=== PATIENT | female | born 1945 | race Caucasian/White ===

== ENCOUNTER 2017-02-18 21:40 | Inpatient (IN) | payer MEDICARE, OTHER ==
[~2017-02-18] VITALS: Ht 160 cm; Wt 62.6 kg
[~2017-02-18 21:40] MED LIST: FLUO20CA36 PO; RISP2TAB23 PO
--- NOTE | 2017-02-18 21:52 | NUR ---
CALLED NURSING SUP. FOR TELE BED
[2017-02-18] MEDS ORDERED: HYDROMORPHONE INJ 2 MG/ML DISP.SYRIN IV ONE (22:30)
[2017-02-18] MEDS ORDERED: ONDANSETRON HCL/PF 4 MG/2 ML VIAL IVP ONE (22:30)
[2017-02-18] MEDS ORDERED: HYDROMORPHONE 1 MG/1 ML DISP.SYRIN ONE (22:34)
[2017-02-18] MEDS ORDERED: ONDANSETRON HCL/PF 4 MG/2 ML VIAL ONE (22:34)
--- NOTE | 2017-02-18 22:36 | NUR ---
US IN PROGRESS AT THE BEDSIDE.
[2017-02-18 22:46] LABS: BASOPHILS % (AUTO) 0.3 % (0.0-2.0); EOSINOPHILS % (AUTO) 0.2 % (0.0-6.0); HEMATOCRIT 41 % (33-45); HEMOGLOBIN 13.4 g/dL (11.5-14.8); LYMPHOCYTES # (AUTO) 0.8 /CMM (0.8-4.8); LYMPHOCYTES % (AUTO) 7.3 % (20.0-44.0); MEAN CORPUSCULAR HEMOGLOBIN 30 PG (26.0-33.0); MEAN CORPUSCULAR HGB CONC 33 g/dl (31.0-36.0); MEAN CORPUSCULAR VOLUME 91 fL (82-100); MONOCYTES # (AUTO) 0.4 /CMM (0.1-1.30); MONOCYTES % (AUTO) 3.3 % (2.0-12.0); NEUTROPHILS # (AUTO) 10.4 /CMM (1.8-8.9); NEUTROPHILS % (AUTO) 88.9 % (43.0-81.0); PLATELET COUNT (AUTO) 213 /CMM (150-450); RDW COEFFICIENT OF VARIATION 13.1 (11.5-15.0); RED BLOOD CELL COUNT(AUTO) 4.43 MIL/uL (4.0-5.2); WHITE BLOOD COUNT (AUTO) 11.7 K/uL (4.3-11.0)
--- NOTE | 2017-02-18 22:52 | NUR ---
EKG IN PROGRESS AT THE BEDSIDE.
--- NOTE | 2017-02-18 22:53 | NUR ---
PANMAN AT THE BEDSIDE.
[2017-02-18 22:57] LABS: CALCIUM, SERUM 9.6 mg/dL (8.5-10.1); CREATININE 1.4 mg/dL (0.6-1.3)
[2017-02-18 23:01] LABS: INR 0.94 (0.87-1.13)
[2017-02-18 23:03] LABS: ALBUMIN 3.8 g/dL (3.4-5.0); BILIRUBIN,DIRECT 0.1 mg/dL (0.0-0.2); BILIRUBIN,TOTAL 0.4 mg/dL (0.2-1.0); TOTAL PROTEIN, SERUM 7.7 g/dL (6.4-8.2)
[2017-02-18 23:05] LABS: TROPONIN I 0.098 ng/mL (0.00-0.056)
[2017-02-18] MEDS ORDERED: IOHEXOL-350 100 ML VIAL IV ONE (23:41)
[2017-02-18] MEDS ORDERED: IV NS 0.9% 250 ML IV ONE (23:41)
--- NOTE | 2017-02-19 00:03 | NUR ---
PT LEFT FOR CT VIA GURNEY.
[2017-02-19] MEDS ORDERED: ASPIRIN 325 MG TABLET ONE (01:09)
[2017-02-19] MEDS ORDERED: NITROGLYCERIN PACKET 1 GM PACKET ONE (01:09)
[2017-02-19] MEDS ORDERED: NITROGLYCERIN PACKET 1 GM PACKET TD ONE (01:30)
[2017-02-19] MEDS ORDERED: ASPIRIN 81 MG TAB.CHEW PO ONE (01:30)
--- NOTE | 2017-02-19 01:53 | NUR ---
DR. CARRION IS SPEAKING TO DR. HARO.
[2017-02-19] MEDS ORDERED: NITROGLYCERIN 0.4 MG/TAB BOTTLE SL PRN (02:00)
[2017-02-19] MEDS ORDERED: MORPHINE SULFATE INJ 2 MG/ML DISP.SYRIN IV PRN (02:00)
[2017-02-19] MEDS ORDERED: ZOLPIDEM TARTRATE 5 MG TABLET PO PRN (02:00)
[2017-02-19] MEDS ORDERED: CARVEDILOL 6.25 MG TABLET PO SCH ×3 (02:00→21:00)
[2017-02-19] MEDS ORDERED: ONDANSETRON HCL/PF 4 MG/2 ML VIAL IVP PRN (02:00)
[2017-02-19] MEDS: ASPIRIN 81 MG TAB.CHEW PO SCH ×2 (03:15→08:01)
--- NOTE | 2017-02-19 03:15 | NUR ---
ophthalmic technician Note Received pt. from ER from [facility]. 71F A&O x4. Pt. ambulated from stretcher to bed 111-2. Admitting Dx NSTEMI. Denies chest pain at this time. VSS. Admission routine care rendered. Oriented to room and nurse call light within reach. Orders noted and carried out. Pt. on RA with no SOB. Tele SR on the monitor. Skin intact. Pt. is ambulatory. Keep pt. comfortable. Will continue to monitor.
--- NOTE | 2017-02-19 03:21 | NUR ---
PT TRANSPORTED TO TELE VIA GURNEY.
[2017-02-19 04:01] VITALS: BP 119/64
--- NOTE | 2017-02-19 04:24 | NUR ---
ASA not given at this time. Pt. received ASA in the ER.
[2017-02-19] MEDS ORDERED: CARVEDILOL 6.25 MG TABLET ONE (04:26)
--- NOTE | 2017-02-19 06:02 | NUR ---
Troponin- 0.407. Juanita MONTEJO charge nurse aware. No MD contact required. Pt. denies chest pain at this time. VSS. Pt. instructed to call for any s/s of chest pain.
--- NOTE | 2017-02-19 06:05 | NUR ---
goods layer not Closing pt. in bed resting comfortably. VSS. Denies abdominal or chest pain. No distress or SOB. SR on the tele monitor. All needs attended to. Will keep comfortable and continue to monitor.
--- NOTE | 2017-02-19 07:30 | NUR ---
RN NOTES: PT RECEIVED IN STABLE CONDITION ALERT AWAKE OX3. ABLE TO MAKE NEEDS KNOWN. RESPONSIVE TO VERBAL & TACTILE STIMULI. ALL NEEDS KNOWN. ON ROOM AIR. ON TELE MONITOR, SINUS RHYTHM. AMBULATORY. IV LINE INTACT, SALINE LOCK. SAFETY MEASURES OBSERVED. CALL LIGHT WITHIN REACH. WILL CONTINUE TO MONITOR.
[2017-02-19] MEDS ORDERED: VALS80TA2 PO ×2 (07:48→08:14)
[2017-02-19] MEDS ORDERED: MIRT15TA7 PO (07:48)
[2017-02-19 08:00] VITALS: BP 94/50
--- NOTE | 2017-02-19 08:00 | NUR ---
RN NOTES: PT SEEN BY DR. 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
[2017-02-19 09:16] LABS: MAGNESIUM 1.8 mg/dL (1.8-2.4); PHOSPHORUS 3.8 mg/dL (2.5-4.9); THYROID STIMULATING HORMONE 1.549 uIU/mL (0.358-3.74)
[2017-02-19] MEDS ORDERED: IV SET PRIMARY PUMP SET 1 EA INFUS.SET MC ONE (09:25)
[2017-02-19] MEDS: ENOXAPARIN SODIUM 60 MG/0.6 ML DISP.SYRIN SQ SCH (09:32)
[2017-02-19] MEDS: IV NS 0.9% 1,000 ML IV PRN ×2 (09:32→22:42)
[2017-02-19 12:00] VITALS: BP 95/55
[2017-02-19 16:00] VITALS: BP 120/60
[2017-02-19 20:00] VITALS: BP 141/81
--- NOTE | 2017-02-19 20:00 | NUR ---
RN NOTE GOT A CALL FROM DR SEGUNDO, NEW ORDER CARRIED OUT - COREG DOSE INCREASED TO 12.5
--- NOTE | 2017-02-19 20:30 | NUR ---
RN NOTE GOT A CALL FROM VENEER PULLERGINO FERRARI, ABEL WITH UNDERGO CT ANGIOGRAM OF THE HEART TOMORROW 02/20/2017 BETWEEN 9-12NN. CONSENT TO BE SIGNED, PT NPO POST MN.
[2017-02-19] MEDS ORDERED: CARVEDILOL 12.5 MG TABLET ONE (20:43)
[2017-02-19] MEDS: CARVEDILOL 12.5 MG TABLET PO SCH (21:00)
--- NOTE | 2017-02-19 21:30 | NUR ---
RN NOTE COREG 12.5 MG WAS SCANNED AND GIVEN AT 2100. HOWEVER ON THE EMAR THERE WAS A DUPLICATE ORDER, THIS WAS CORRECTED NON-ADMIN.
--- NOTE | 2017-02-19 23:06 | NUR ---
PT SIGNED THE CONSENT FOR CT ANGIO WITH CONTRAST. PT GIVEN VERBAL AND PRINTED INFORMATION REGARDING THE DIAGNOSTIC TEST AND VERBALIZED UNDERSTANDING.
[2017-02-20] VITALS (9 sets, daily range): BP systolic 106–154; BP diastolic 44–77
--- NOTE | 2017-02-20 06:31 | NUR ---
INSERTED NEW IV PERIPHERAL SITE G18 ON RFA REQUIRED FOR CT ANGIO. TOLERATED WELL
--- NOTE | 2017-02-20 06:32 | NUR ---
RN CLOSING NOTE PT IN STABLE CONDITION, CALM AND COOPERATIVE. ASKED IF SHE HAS FURTHER QUESTIONS REGARDING DIAGNOSTIC PROCEDURE TODAY, PT VERBALIZED SHE IS SATISFIED WITH THE INFORMATION PROVIDED AND IS READY TO FACE THE DAY. WILL ENDORSE TO AM NURSE FOR CONTINUITY OF CARE
[2017-02-20 07:36] LABS: BASOPHILS % (AUTO) 0.5 % (0.0-2.0); EOSINOPHILS # (AUTO) 0.1 /CMM (0.0-0.7); EOSINOPHILS % (AUTO) 2.1 % (0.0-6.0); HEMATOCRIT 33 % (33-45); HEMOGLOBIN 11.2 g/dL (11.5-14.8); LYMPHOCYTES # (AUTO) 0.9 /CMM (0.8-4.8); LYMPHOCYTES % (AUTO) 17.5 % (20.0-44.0); MEAN CORPUSCULAR HEMOGLOBIN 31 PG (26.0-33.0); MEAN CORPUSCULAR HGB CONC 34 g/dl (31.0-36.0); MEAN CORPUSCULAR VOLUME 92 fL (82-100); MONOCYTES # (AUTO) 0.4 /CMM (0.1-1.30); MONOCYTES % (AUTO) 7.2 % (2.0-12.0); NEUTROPHILS # (AUTO) 3.7 /CMM (1.8-8.9); NEUTROPHILS % (AUTO) 72.7 % (43.0-81.0); PLATELET COUNT (AUTO) 175 /CMM (150-450); RDW COEFFICIENT OF VARIATION 13.4 (11.5-15.0); WHITE BLOOD COUNT (AUTO) 5.1 K/uL (4.3-11.0)
[2017-02-20 07:56] LABS: ALBUMIN 3.1 g/dL (3.4-5.0); BILIRUBIN,TOTAL 0.3 mg/dL (0.2-1.0); CALCIUM, SERUM 8.5 mg/dL (8.5-10.1); MAGNESIUM 1.9 mg/dL (1.8-2.4); PHOSPHORUS 3.4 mg/dL (2.5-4.9); POTASSIUM 4.3 mmol/L (3.5-5.1); TOTAL PROTEIN, SERUM 6.3 g/dL (6.4-8.2)
[2017-02-20 08:04] LABS: TROPONIN I 0.074 ng/mL (0.00-0.056)
[2017-02-20] MEDS ORDERED: IV NS 0.9% 250 ML IV ONE (08:20)
[2017-02-20] MEDS ORDERED: CT SWABBABLE VALVE TRANS SET 1 EA INFUS.SET MC ONE (08:21)
[2017-02-20] MEDS ORDERED: IOHEXOL-350 100 ML VIAL IV ONE (08:21)
[2017-02-20] MEDS ORDERED: NITROGLYCERIN 0.4 MG/TAB BOTTLE ONE (09:26)
[2017-02-20] MEDS: ENOXAPARIN SODIUM 60 MG/0.6 ML DISP.SYRIN SQ SCH (10:15)
[2017-02-20] MEDS: ASPIRIN 81 MG TAB.CHEW PO SCH (10:15)
--- NOTE | 2017-02-20 10:15 | NUR ---
PRINT LINE SUPERVISOR/ CT Angiography 0850 Patient seen, vitals stable HR 59 BP 139/68. no apparent distress, denies chest pain or SOB. EKG done NSR with AICD on the left side. Pre- procedure checklist done and placed on chart. IV on the right AC patent with back flow. 0900 Patient education reinforced regarding contrast administration and procedure. consent on chart and patient in agreement. questions answered. [address] room, vitals remain stable, recorded. no betablocker given, HR <60. 0931 Nitro 0.4mg sublingual given prior scan. no distress, vitals remain stable. 0940 CTA done, no distress or discomfort reported. vitals remain stable and will continue to monitor. 0942 Transported back to room, vitals signs monitored and recorded. No complaints of any distress, no chest pain. alert and oriented on room air.
[2017-02-20] MEDS: CARVEDILOL 12.5 MG TABLET PO SCH ×2 (10:16→21:11)
--- NOTE | 2017-02-20 18:41 | NUR ---
RN NOTES PT RESTING IN BED COMFORTABLY, WATCHING TV.. PT SIGNED CONSENT FOR STRESS TEST JONATHAN, NPO POST MID NIGHT AND NO COFFEE. PT VERBALIZED UNDERSTANDING. ALL DUE MEDS GIVEN, NEEDS ATTENDED. FREQUENT VISUAL CHECKS MADE. MONITORED ACCORDINGLY
[2017-02-21] VITALS (7 sets, daily range): BP systolic 121–144; BP diastolic 60–76
[2017-02-21] MEDS: IV NS 0.9% 1,000 ML IV PRN ×2 (00:36→15:33)
[2017-02-21] MEDS ORDERED: REGADENOSON 0.4 MG/5 ML DISP.SYRIN IVP ONE (05:00)
--- NOTE | 2017-02-21 06:51 | NUR ---
pt sleeping well overnight, npo after midnight and started iv fluids, right arm with iv removed ,site is red and swollen with no blood return.ambulates to bathroom,denies any chest pain, no abdominal pain.sinus on monitor with AICD.all needs attended
[2017-02-21] MEDS ORDERED: VALSARTAN 80 MG TABLET PO SCH (13:00)
[2017-02-21] MEDS: ASPIRIN 81 MG TAB.CHEW PO SCH (13:13)
[2017-02-21] MEDS: CARVEDILOL 12.5 MG TABLET PO SCH (13:14)
[2017-02-21] MEDS: ENOXAPARIN SODIUM 60 MG/0.6 ML DISP.SYRIN SQ SCH (13:15)
--- NOTE | 2017-02-21 16:53 | NUR ---
RN NOTE PT DISCHARGED HOME IN STABLE CONDITION, INSTRUCTION TO F/U WITH DR SEGUNDO GIVEN TO PT, ID BAND REMOVED, IV REMOVED, BELONGINGS LIST SIGNED, EXIT CARE DONE, AND BELONGINGS ARE GIVEN TO PT. PT LEFT WITH FRIEND VIA FRIEND'S CAR.
== END 2017-02-21 16:46 | disposition home or self-care (01) | DRG 280 ==
LOC: ER 21:42 → TELE 02-19 01:58 → TELE1 02-19 03:22
PROVIDERS: ADMIT Internal Medicine; ATTEND Nurse Practitioner Acute Care
DX: I21.4 Non-ST elevation (NSTEMI) myocardial infarction (principal); N17.0 Acute kidney failure with tubular necrosis; E78.5 Hyperlipidemia, unspecified; I10 Essential (primary) hypertension; R10.13 Epigastric pain; Z95.810 Presence of automatic (implantable) cardiac defibrillator; Z86.74 Personal history of sudden cardiac arrest; F42.9 Obsessive-compulsive disorder, unspecified; F41.9 Anxiety disorder, unspecified; Z90.49 Acquired absence of other specified parts of digestive tract; F32.9 Major depressive disorder, single episode, unspecified; I25.2 Old myocardial infarction
CPT/HCPCS: 36415; 71010-TC; 75574; 76705-TC; 80048-TC; 80053-TC; 80061-TC; 80076-TC; 82306; 83690-TC; 83735-TC; 84100-TC; 84439-TC; 84443-TC; 84484-TC; 85025-TC; 85730-TC; 87081-TC; 93307-TC; A4606; A9502; J1170; J1650; J2405; J2785; J7030; J7050; Q9967; Z7610